=== PATIENT | female | born 1995 | race American Indian/Alaskan Native ===

== ENCOUNTER 2021-02-23 11:40 | Inpatient (IN) | payer OTHER ==
[2021-02-23] MEDS ORDERED: MAGNESIUM SULFATE 4 GM/100 ML BAG IV ONE ×2 (13:33→14:17)
[2021-02-23] MEDS: hydrALAZINE 20 MG/1 ML INJ IV PRN ×4 (13:35→23:19)
[2021-02-23] MEDS ORDERED: LACTATED RINGERS 2,000 ML ONE (13:43)
[2021-02-23] MEDS ORDERED: LACTATED RINGERS 1,000 ML ONE ×2 (13:48→16:12)
[2021-02-23] MEDS ORDERED: MAGNESIUM SULFATE 40GM/1000ML 40 GM/1,000 ML BAG IV SCH (14:00)
--- NOTE | 2021-02-23 14:01 | History and Physical Report ---
History of Present Illness Date of examination: 02/23/21 Date of admission: 02/23/21 Chief complaint: elevated blood pressures and fht decelerations.31 weeks and 6 days/ History of present illness: The patient is a 25-year-old -[place] female primigravida at 31 weeks and 6 days with elevated blood pressure heart rate decelerations from [facility] who was sent over here because of the closest hospital she did have elevated blood pressure 27 weeks and 6 days blood pressure was 140/90 she denies a prior history of hypertension or preeclampsia at that time. EDC is 10- 21 and she was first seen for when she was 7 weeks she does have a history of intermittent asthma eczema acne. She is here now resolved chlamydia infection she does have an obesity problem she has resolved pityriasis rosea. Obesity BMI is 66.9 her medications include fluconazole and if you medical car Betimol or Robaxin she has been taking fluconazole on multiple occasions working EDC is 10-21 last menstrual period ultrasound her EDC is 04/23/2021 she has had approximately 10 visits during this when her blood pressure was initially found to be elevated she denied headaches visual changes chest pain shortness of breath epigastric pain the patient has had a 20+ weight gain over the last 2 weeks prior to this admission her last hematocrit was 34.3% her blood type is B+ no surgery. Other labs include a blood type B+ antibody screen and the blood is negative hemoglobin is 11.4 hematocrit 33.8% hemoglobin a is 97.4% hemoglobin A2 was 1.4% hemoglobin S was not seen blood was 1.5 Chlamydia and gonorrhea tests were negative syphilis is nonreactive diabetic screen was 108 Past medicalhistoryincludesasthma allergies obesity and cancer and hyperlipidemia and hypertension. The patient has never smoked she does not drink alcohol she was sexually active. Syphilis test was negative HIV test was negative. Creatinine of the urine was 129.80 mg/dL rubella was immune hepatitis B was nonreactive Obesity eczema precocious puberty. The patient was made ready for a section because she hasElevated blood pressures heart rate decelerations. Past History Past Medical History: asthma, other (obesity, ashtma) Past Surgical History: no surgical history Family/Genetic History: diabetes, hypertension, cancer Social history: single - Obstetrical History Expected Date of Delivery: 04/21/21 Actual Gestation: 31 Week(s) 6 Day(s) : 1 Para: 0 Hx # Term Pregnancies: 0 Number of Pregnancies: 0 Spontaneous Abortions: 0 Induced : 0 Number of Living Children: 0 Medications and Allergies Allergies Allergy/AdvReac Type Severity Reaction Status Date / Time No Known Allergies Allergy Unverified 02/23/21 12:05 Home Medications Medication Instructions Recorded Confirmed Last Taken Type No Known Home Medications [No 02/23/21 02/23/21 Unknown History Reported Home Medications] Active Meds: Active Medications Hydralazine HCl (Hydralazine 20 Mg/1 Ml Inj) 10 mg IV Q30MIN PRN PRN Reason: Blood Pressure Last Admin: 02/23/21 13:35 Dose: 10 mg Documented by: Magnesium Sulfate (Magnesium Sulfate 4gm/100ml) 4 gm in 100 mls @ 25 mls/hr IV ONCE ONE Stop: 02/23/21 17:32 Magnesium Sulfate (Magnesium Sulfate 40gm/1000ml) 40 gm in 1,000 mls @ 50 mls/hr IV DIRECT ADDIS Review of Systems All systems: negative - Vital Signs Vital signs: Vital Signs Pulse Pulse Ox 112 H 99 02/23/21 11:57 02/23/21 11:57 Temp Pulse Resp BP Pulse Ox 99.4 F 104 H 18 154/93 99 02/23/21 12:10 02/23/21 13:42 02/23/21 12:10 02/23/21 13:39 02/23/21 13:42 - Physical Exam Breasts: Cardiovascular: Regular rate, Normal S1, Normal S2 Lungs: Positive: Clear to auscultation Abdomen: Positive: normal appearance, soft, normal bowel sounds. Negative: distention, tenderness Genitourinary (Female): Positive: normal external genitalia, normal perenium Vulva: both: normal Vagina: Positive: normal moisture. Negative: discharge Cervix: Positive: other (closed). Negative: lesion, discharge Uterus: Positive: normal size, enlarged (32 wk size), normal contour Adnexa: both: normal Anus/Rectum: Positive: normal perianal skin, heme negative. Negative: rectal mass, hemorrhoids Extremities: Deep Tendon Reflex Grade: Normal +2 - Obstetrical FHR: auscultation normal, category 1, category 2 FHR comments: fht decelerations. Uterine Contraction Monitor Mode: External Cervical Dilatation: 0 Cervical Effacement Percentage: 50 station: -3 Uterine Contraction Frequency (min): none Uterine Contraction Duration: none Uterine Contraction Pattern: Absent Uterine Tone Measurement Phase: Resting Results All other labs normal. Assessment and Plan severe pre-eclampsia , obesity, fht decelerations , 32 weeks iup plan tx with mag sulfate and prep for a .
[2021-02-23 14:16] LABS: Hematocrit 38.6 % (30.3-42.9); Hemoglobin 12.8 gm/dl (10.1-14.3); Mean Corpuscular HGB Conc 33 % (30-34); Mean Corpuscular Volume 84 fl (79-97); Platelet Count 287 K/mm3 (140-440); Red Blood Count 4.58 M/mm3 (3.65-5.03); Red Cell Distribution Width 14.8 % (13.2-15.2)
[2021-02-23] MEDS ORDERED: METOCLOPRAMIDE 10 MG/2 ML INJ IV NR (15:00)
[2021-02-23] MEDS ORDERED: BICITRA ORAL LIQD 30ML PO SCH (15:00)
[2021-02-23] MEDS ORDERED: FAMOTIDINE 20 MG/2 ML INJ IV NR (15:00)
[2021-02-23] MEDS ORDERED: ceFAZolin/Water 2 GM/20 ML 2 GM/20 ML SYRINGE IV NR (15:00)
[2021-02-23] MEDS ORDERED: OXYTOCIN DRIP 30 UNITS/500 ML BAG IV ONE (15:00)
[2021-02-23] MEDS ORDERED: MORPHINE PF 10MG/10 ML AMPULE EPIDURAL ONE (15:47)
[2021-02-23] MEDS ORDERED: NalbUPHINE 10 MG/1 ML INJ IV PRN (15:49)
[2021-02-23] MEDS ORDERED: NALOXONE 0.4 MG/1 ML INJ IV PRN ×2 (15:49→17:02)
[2021-02-23] MEDS ORDERED: ONDANSETRON 4 MG/2 ML INJ IV PRN (15:49)
--- NOTE | 2021-02-23 15:49 | Anesthesia Consultation ---
Anesthesia Consult and Med Hx Date of service: 02/23/21 - Airway Anesthetic Teeth Evaluation: Good ROM Head & Neck: Adequate Mental/Hyoid Distance: Adequate Mallampati Class: Class III Intubation Access Assessment: Possibly Difficult - Pre-Operative Health Status ASA Pre-Surgery Classification: ASA3, Emergency Proposed Anesthetic Plan: Epidural, Spinal - Pulmonary Hx Smoking: No Hx Asthma: Yes (rare inhaler use) Hx Respiratory Symptoms: No - Cardiovascular System Hx Hypertension: Yes (concern for pre-eclampsia) - Central Nervous System CVA: No - Endocrine Hx Renal Disease: No Hx Liver Disease: No Hx Insulin Dependent Diabetes: No Hx Non-Insulin Dependent Diabetes: No Hx Thyroid Disease: No - Hematic Hx Anemia: No - Other Systems Hx Obesity: Yes (BMI 43) - Additional Comments Anesthesia Medical History Comments: No prior anesthetics. Primary for HTN and non-reassuring FHTs.
--- NOTE | 2021-02-23 15:49 | Anesthesia Day of Surgery ---
Anesthesia Day of Surgery - Day of Surgery Patient Examined: Yes Patient H&P Reviewed: Yes Patient is NPO: Yes
[2021-02-23] MEDS ORDERED: fentaNYL-BUPIV 2 MCG/ML-0.125% 200 MCG/100 ML BAG EPIDURAL SCH (16:00)
[2021-02-23] MEDS ORDERED: PHENYLEPHRINE/NS 1,000 MCG/10 ML SYRINGE (OR USE) IV ONE (16:13)
[2021-02-23] MEDS ORDERED: dexAMETHasone 20 MG/5 ML VIAL ONE (16:56)
[2021-02-23] MEDS ORDERED: BUPIVACAINE/PF (0.25%) 2.5 MG/ML 30 ML VIAL INFILTRATI ONE (16:56)
[2021-02-23] MEDS ORDERED: WITCH HAZEL/ GLYCERIN PAD TP PRN (17:02)
[2021-02-23] MEDS ORDERED: MORPHINE 4 MG/1 ML INJ IV PRN (17:02)
[2021-02-23] MEDS ORDERED: LANOLIN/ZINC/DIMETHICONE (LANSINOH) 7 GM TP PRN (17:02)
--- NOTE | 2021-02-23 17:17 | Procedure Note ---
Date of procedure: 02/23/21 Pre-op diagnosis: 32 WEEKS IUP, SEVERE PRE-ECLAMPSIA, OBESITY, NON-REASSURING FHT Post-op diagnosis: other (NUCHAL CORD X 2) Procedure: Patient was taken to the operatory and made ready for a primary low transverse section. Preoperative diagnosis 32-week intrauterine , obesity, severe preeclampsia, nonreassuring heart tones. Postoperative diagnosis all of the above including nuchal cord x2. Procedure was a low transverse section. Anesthesia spinal. Drains Monson. Estimated blood loss 601 cc. Complications none. Findings liveborn male infant weight 1590 g Apgars 4 and 7. Procedure once the patient was placed with a spinal anesthetic we prepped and draped in usual fashion timeout was performed we all concurred. We and abdominal cavity with the scalpel and a Pfannenstiel incision area subcutaneous Bovie. Once within the abdominal cavity this uterine peritoneum was cut transversely with Metzenbaums bladder blade was placed in the lower pole of the incision a low transverse incision made in lower uterine segment with the scalpel and the fetus in vertex presentation was delivered without incident oropharynx suction nasopharynx suction with lab prolonged cord drainage during the course doubly clamped and cut and passed off the table to the team in stable condition. The placenta was then delivered intact manually uterus then delivered out of the abdominal cavity uterine cavity was cleaned of debris membranes and tissue uterine incision was repaired in 2 layers 1st layer was in a deep manage using running locked #0 chromic superficial myometrium was closed with running locking 0 chromic uterine incision was hemostatic vesicouterine peritoneum was repaired running 2-0 chromic on a GI needle. Tubes and ovaries appeared to be normal use drop back to abdominal cavity gutters were suction of tissue blood membranes all instruments removed from abdominal care instrument count needle lap sponge count was correct anterior abdominal peritoneum was repaired running 2-0 chromic fascia was repaired running locking 0 Vicryl subcutaneous is repaired running 2- 0 Vicryl skin was repaired running subcuticular 4-0 Vicryl on a Silviano needle and drained with Dermabond the patient tolerated procedure well she was then to return to the recovery room in stable condition. Anesthesia: spinal Surgeon: NAS LOVETT Estimated blood loss: other (601CCS) IV fluids: 600 Urine output: 50 Pathology: list (PLACENTA AND CORD) Specimen disposition: to lab Condition: stable Disposition: PACU
[2021-02-23] MEDS ORDERED: OXYTOCIN DRIP 30 UNITS/500 ML BAG IV SCH (18:00)
--- NOTE | 2021-02-23 19:30 | Progress Note ---
Regional Anesthesia Block - Regional Anesthesia Block Start Time: 17:20 Stop Time: 17:25 Performed By:: MARILY FROST Procedure: U/S guided bilateral tap block performed for post-operative pain requested by Dr. Wakefield. H&P & labs reviewed. Procedure explained, questions answered, consent obtained. Patient in the supine position with ekg, blood pressure cuff and pulse ox on and working in PACU. Timeout performed immediately before start of procedure. Probe placed in the mid-axillary line and the external oblique, internal oblique, and transverse abdominus muscles identified. Skin was cleansed with chlorahexadine 0.5% and allowed to dry. A 4" 20 G Anand echogenic needle was advanced in plane until the tip was in the fascial plane between the internal oblique and the transverse abdominus. After negative aspiration 35 ml/side of [30 ml 0.5% Bupivacaine], [10 mg dexamethasone], and [40 ml sterile saline] was injected in 5 ml increments with negative aspiration in between. Patient tolerated procedure well.
[2021-02-24] MEDS ORDERED: LACTATED RINGERS 1,000 ML ONE (02:04)
[2021-02-24] MEDS ORDERED: LACTATED RINGERS 1,000 ML IV SCH (02:15)
[2021-02-24] MEDS ORDERED: ACETAMINOPHEN 325 MG TAB PO PRN (05:17)
[2021-02-24] MEDS ORDERED: NALOXONE 0.4 MG/1 ML INJ IV PRN (05:17)
[2021-02-24] MEDS ORDERED: IBUPROFEN 600 MG TAB PO PRN (05:17)
[2021-02-24] MEDS ORDERED: WITCH HAZEL/ GLYCERIN PAD TP PRN (05:17)
[2021-02-24] MEDS ORDERED: HYDROcodone/ACETAMINOPHEN 5-325 MG TAB PO PRN (05:17)
[2021-02-24] MEDS ORDERED: LANOLIN/ZINC/DIMETHICONE (LANSINOH) 7 GM TP PRN (05:17)
[2021-02-24] MEDS ORDERED: MORPHINE 4 MG/1 ML INJ IV PRN (05:17)
[2021-02-24] MEDS ORDERED: ceFAZolin/NS 1 GM/50 ML 0 GM/0 ML BAG IV ONE (05:41)
[2021-02-24] MEDS ORDERED: OXYTOCIN DRIP 30 UNITS/500 ML BAG IV SCH (06:00)
[2021-02-24 06:31] LABS: Hematocrit 36.2 % (30.3-42.9); Hemoglobin 12.2 gm/dl (10.1-14.3)
[2021-02-24] MEDS ORDERED: ceFAZolin/NS 1 GM/50 ML 1 GM/50 ML BAG IV SCH (08:00)
--- NOTE | 2021-02-24 09:16 | Progress Note ---
Assessment and Plan severe pre-eclampsia , obesity, fht decelerations , 32 weeks iup plan tx with mag sulfate and prep for a . pt is stable. will stop mag sulfate. Subjective - Subjective Date of service: 02/24/21 Principal diagnosis: 32 wks iup, non-reasurring fh; obesity Interval history: The patient is a 25-year-old -[place] female primigravida at 31 weeks and 6 days with elevated blood pressure heart rate decelerations from [facility] who was sent over here because of the closest hospital she did have elevated blood pressure 27 weeks and 6 days blood pressure was 140/90 she denies a prior history of hypertension or preeclampsia at that time. EDC is 10- 21 and she was first seen for when she was 7 weeks she does have a history of intermittent asthma eczema acne. She is here now resolved chlamydia infection she does have an obesity problem she has resolved pityriasis rosea. Obesity BMI is 66.9 her medications include fluconazole and if you medical car Betimol or Robaxin she has been taking fluconazole on multiple occasions working EDC is 10- last menstrual period ultrasound her EDC is 04/23/2021 she has had approximately 10 visits during this when her blood pressure was initially found to be elevated she denied headaches visual changes chest pain shortness of breath epigastric pain the patient has had a 20+ weight gain over the last 2 weeks prior to this admission her last hematocrit was 34.3% her blood type is B+ no surgery. Other labs include a blood type B+ antibody screen and the blood is negative hemoglobin is 11.4 hematocrit 33.8% hemoglobin a is 97.4% hemoglobin A2 was 1.4% hemoglobin S was not seen blood was 1.5 Chlamydia and gonorrhea tests were negative syphilis is nonreactive diabetic screen was 108 Past medicalhistoryincludesasthma allergies obesity and cancer and hyperlipidemia and hypertension. The patient has never smoked she does not drink alcohol she was sexually active. Syphilis test was negative HIV test was negative. Creatinine of the urine was 129.80 mg/dL rubella was immune hepatitis B was nonreactive Obesity eczema precocious puberty. The patient was made ready for a section because she hasElevated blood pressures heart rate decelerations. Patient reports: appetite normal Objective - Vital Signs Latest vital signs: Vital Signs Temp Pulse Resp Resp BP BP Pulse Ox 02/24/21 09:06 91 H 100 02/24/21 09:01 84 100 02/24/21 08:58 86 93 02/24/21 08:56 99 H 97 02/24/21 08:51 102 H 99 02/24/21 08:48 85 152/81 02/24/21 08:46 95 H 99 02/24/21 08:45 92 H 92 02/24/21 08:41 87 100 02/24/21 08:36 79 99 02/24/21 08:31 83 99 02/24/21 08:26 80 100 02/24/21 08:21 84 100 02/24/21 08:17 82 139/74 02/24/21 08:16 84 100 02/24/21 08:11 79 99 02/24/21 08:06 79 100 02/24/21 08:01 86 99 02/24/21 07:56 97 H 99 02/24/21 07:51 98 H 100 02/24/21 07:48 83 153/80 02/24/21 07:46 83 100 02/24/21 07:41 79 100 02/24/21 07:36 83 100 02/24/21 07:31 83 100 02/24/21 07:26 83 100 02/24/21 07:21 85 100 02/24/21 07:18 83 155/84 02/24/21 07:16 81 100 02/24/21 07:11 88 100 02/24/21 07:10 02/24/21 07:06 94 H 99 02/24/21 07:01 92 H 99 02/24/21 06:56 94 H 98 02/24/21 06:51 89 100 02/24/21 06:47 91 H 136/74 02/24/21 06:46 96 H 99 02/24/21 06:41 79 98 02/24/21 06:36 82 97 02/24/21 06:31 81 97 02/24/21 06:26 80 98 02/24/21 06:21 82 98 02/24/21 06:17 85 138/76 02/24/21 06:16 83 99 02/24/21 06:11 75 98 02/24/21 06:06 82 99 02/24/21 06:01 80 97 02/24/21 05:56 81 98 02/24/21 05:51 87 99 08 05:46 107 H 97 02/24/21 05:41 82 96 08 05:36 85 96 02/24/21 05:31 80 96 08 05:26 79 97 08 05:21 80 97 02/24/21 05:17 83 137/75 08 05:16 86 98 02/24/21 05:11 82 97 02/24/21 05:06 81 98 02/24/21 05:01 85 98 02/24/21 04:56 86 98 02/24/21 04:51 90 97 02/24/21 04:48 80 154/78 08 04:46 77 98 02/24/21 04:41 82 98 02/24/21 04:36 80 96 02/24/21 04:31 78 97 02/24/21 04:26 78 97 02/24/21 04:21 82 97 02/24/21 04:17 83 129/68 94 02/24/21 04:16 84 96 02/24/21 04:11 84 96 02/24/21 04:06 81 96 02/24/21 04:01 85 96 02/24/21 03:56 79 96 02/24/21 03:51 81 96 02/24/21 03:47 90 138/78 94 02/24/21 03:46 88 95 02/24/21 03:41 79 95 02/24/21 03:36 81 95 02/24/21 03:31 80 96 02/24/21 03:26 81 95 02/24/21 03:21 79 95 08 03:17 80 136/71 94 02/24/21 03:16 81 96 02/24/21 03:11 78 96 02/24/21 03:06 85 96 02/24/21 03:01 85 97 02/24/21 02:56 83 97 02/24/21 02:51 88 97 02/24/21 02:47 86 141/76 02/24/21 02:46 85 98 07 02:41 83 98 0807 02:36 83 98 08 02:31 85 97 02/24/21 02:26 84 98 02/24/21 02:21 84 98 08/07/21 02:17 82 144/84 02/24/21 02:16 81 97 02/24/21 02:11 91 H 98 02/24/21 02:06 85 98 02/24/21 02:01 76 97 02/24/21 01:56 79 97 02/24/21 01:51 81 97 02/24/21 01:47 84 139/76 02/24/21 01:46 81 97 02/24/21 01:41 83 97 02/24/21 01:36 80 96 02/24/21 01:31 82 96 02/24/21 01:26 85 96 02/24/21 01:21 87 95 02/24/21 01:17 79 122/68 93 02/24/21 01:16 80 95 02/24/21 01:11 81 95 02/24/21 01:06 81 96 02/24/21 01:01 81 96 02/24/21 00:56 84 96 02/24/21 00:51 84 96 02/24/21 00:47 90 139/75 94 02/24/21 00:46 86 96 02/24/21 00:41 90 97 02/24/21 00:36 89 97 02/24/21 00:31 90 96 02/24/21 00:26 84 96 02/24/21 00:21 89 96 02/24/21 00:17 104 H 139/79 94 02/24/21 00:16 91 H 96 02/24/21 00:11 96 H 96 02/24/21 00:06 90 96 02/24/21 00:01 87 96 02/23/21 23:56 88 96 02/23/21 23:51 95 H 96 02/23/21 23:47 100 H 156/79 02/23/21 23:46 100 H 97 02/23/21 23:42 97 H 148/72 02/23/21 23:41 101 H 97 02/23/21 23:37 96 H 152/76 02/23/21 23:36 100 H 97 02/23/21 23:32 103 H 158/77 02/23/21 23:31 102 H 97 02/23/21 23:27 102 H 167/79 02/23/21 23:26 104 H 99 02/23/21 23:21 95 H 98 08/06/21 23:19 93 H 172/81 02/23/21 23:18 97 H 172/81 02/23/21 23:16 92 H 98 02/23/21 23:15 107 H 173/84 02/23/21 23:11 96 H 98 02/23/21 23:06 89 97 02/23/21 23:03 89 213/99 94 02/23/21 23:01 83 97 02/23/21 22:56 89 99 02/23/21 22:51 86 98 02/23/21 22:48 96 H 190/93 02/23/21 22:46 89 98 02/23/21 22:41 86 98 02/23/21 22:36 90 97 02/23/21 22:33 94 H 179/91 02/23/21 22:31 86 98 02/23/21 22:26 84 98 02/23/21 22:21 83 98 02/23/21 22:18 83 171/106 02/23/21 22:16 84 98 02/23/21 22:11 86 98 02/23/21 22:06 78 99 02/23/21 22:03 79 172/107 02/23/21 22:01 77 99 02/23/21 21:56 75 99 02/23/21 21:55 74 172/91 02/23/21 21:51 74 99 02/23/21 21:48 81 172/91 89 02/23/21 21:46 84 99 02/23/21 21:41 74 100 02/23/21 21:36 77 100 02/23/21 21:33 76 174/93 02/23/21 21:31 75 100 02/23/21 21:26 77 99 02/23/21 21:21 73 100 02/23/21 21:18 73 171/82 02/23/21 21:16 74 99 02/23/21 21:13 71 94 02/23/21 21:11 84 97 02/23/21 21:06 69 100 02/23/21 21:03 76 160/92 02/23/21 21:01 73 99 02/23/21 20:56 80 99 02/23/21 20:51 75 99 02/23/21 20:47 81 155/88 02/23/21 20:46 82 99 02/23/21 20:44 18 02/23/21 20:41 78 99 02/23/21 20:36 75 99 02/23/21 20:32 85 166/93 02/23/21 20:31 85 98 02/23/21 20:29 79 172/95 02/23/21 20:26 85 100 02/23/21 20:21 72 100 02/23/21 20:17 70 169/94 02/23/21 20:16 73 100 02/23/21 20:11 79 100 02/23/21 20:06 78 99 02/23/21 20:03 76 167/108 02/23/21 20:01 72 99 02/23/21 19:56 72 99 02/23/21 19:51 80 99 02/23/21 19:47 75 151/95 02/23/21 19:46 78 100 02/23/21 19:41 82 100 02/23/21 19:36 80 99 02/23/21 19:32 81 152/102 02/23/21 19:31 76 99 02/23/21 19:26 75 99 02/23/21 19:21 84 98 02/23/21 19:17 73 157/95 02/23/21 19:16 71 99 02/23/21 19:11 71 100 02/23/21 19:06 69 100 02/23/21 19:04 76 94 02/23/21 19:02 80 142/88 02/23/21 19:01 80 99 02/23/21 18:57 83 90 02/23/21 18:56 79 99 02/23/21 18:51 83 85 02/23/21 18:49 82 141/90 02/23/21 18:46 75 100 02/23/21 18:41 67 99 02/23/21 18:39 71 93 02/23/21 18:36 74 100 02/23/21 18:32 82 119/61 02/23/21 18:31 80 99 02/23/21 18:07 97.9 F 14 02/23/21 17:52 71 99 02/23/21 17:47 74 126/58 100 02/23/21 17:42 66 100 02/23/21 17:38 65 90 02/23/21 17:37 68 97 02/23/21 17:32 58 L 117/56 99 02/23/21 17:15 97.6 F 67 14 134/57 99 02/23/21 15:28 118 H 99 02/23/21 15:23 114 H 99 02/23/21 15:18 111 H 159/83 99 02/23/21 15:13 111 H 99 02/23/21 15:08 111 H 99 02/23/21 15:03 120 H 162/89 99 02/23/21 14:58 115 H 99 02/23/21 14:53 117 H 100 02/23/21 14:48 114 H 157/94 99 02/23/21 14:43 122 H 100 02/23/21 14:38 103 H 100 02/23/21 14:36 107 H 171/96 02/23/21 14:33 107 H 171/96 100 02/23/21 14:27 99 H 100 02/23/21 14:22 104 H 100 02/23/21 14:18 104 H 168/92 02/23/21 14:17 107 H 100 02/23/21 14:12 111 H 100 02/23/21 14:07 107 H 100 02/23/21 14:02 102 H 100 02/23/21 13:57 108 H 147/100 100 02/23/21 13:55 111 H 144/102 02/23/21 13:52 115 H 161/105 100 02/23/21 13:49 107 H 184/90 02/23/21 13:47 110 H 158/91 100 02/23/21 13:42 104 H 99 02/23/21 13:39 94 H 154/93 02/23/21 13:37 93 H 100 02/23/21 13:35 100 H 166/116 02/23/21 13:32 99 H 100 02/23/21 13:27 101 H 100 02/23/21 13:22 94 H 100 02/23/21 13:21 100 H 166/116 02/23/21 13:17 100 H 100 02/23/21 13:12 101 H 100 02/23/21 13:08 112 H 168/95 02/23/21 13:07 102 H 100 02/23/21 13:02 87 171/106 100 02/23/21 12:57 89 99 02/23/21 12:52 85 99 08/06/21 12:51 96 H 164/101 02/23/21 12:47 92 H 171/102 99 02/23/21 12:42 84 99 02/23/21 12:37 102 H 99 02/23/21 12:32 93 H 135/93 100 02/23/21 12:27 102 H 99 02/23/21 12:22 103 H 100 02/23/21 12:17 101 H 145/76 100 02/23/21 12:12 109 H 100 02/23/21 12:10 99.4 F 18 02/23/21 12:07 104 H 100 02/23/21 12:02 107 H 99 02/23/21 11:59 116 H 173/102 02/23/21 11:57 112 H 99 Pulse Ox 02/24/21 09:06 02/24/21 09:01 02/24/21 08:58 02/24/21 08:56 02/24/21 08:51 02/24/21 08:48 02/24/21 08:46 02/24/21 08:45 02/24/21 08:41 02/24/21 08:36 02/24/21 08:31 02/24/21 08:26 02/24/21 08:21 02/24/21 08:17 02/24/21 08:16 02/24/21 08:11 02/24/21 08:06 02/24/21 08:01 02/24/21 07:56 02/24/21 07:51 02/24/21 07:48 02/24/21 07:46 02/24/21 07:41 02/24/21 07:36 02/24/21 07:31 02/24/21 07:26 02/24/21 07:21 02/24/21 07:18 02/24/21 07:16 02/24/21 07:11 02/24/21 07:10 97 02/24/21 07:06 02/24/21 07:01 02/24/21 06:56 02/24/21 06:51 02/24/21 06:47 02/24/21 06:46 02/24/21 06:41 02/24/21 06:36 02/24/21 06:31 02/24/21 06:26 02/24/21 06:21 02/24/21 06:17 02/24/21 06:16 02/24/21 06:11 02/24/21 06:06 02/24/21 06:01 02/24/21 05:56 02/24/21 05:51 02/24/21 05:46 02/24/21 05:41 02/24/21 05:36 02/24/21 05:31 02/24/21 05:26 02/24/21 05:21 02/24/21 05:17 02/24/21 05:16 02/24/21 05:11 02/24/21 05:06 02/24/21 05:01 02/24/21 04:56 02/24/21 04:51 02/24/21 04:48 02/24/21 04:46 02/24/21 04:41 02/24/21 04:36 02/24/21 04:31 02/24/21 04:26 02/24/21 04:21 02/24/21 04:17 02/24/21 04:16 02/24/21 04:11 02/24/21 04:06 02/24/21 04:01 02/24/21 03:56 02/24/21 03:51 02/24/21 03:47 02/24/21 03:46 02/24/21 03:41 02/24/21 03:36 02/24/21 03:31 02/24/21 03:26 02/24/21 03:21 02/24/21 03:17 02/24/21 03:16 02/24/21 03:11 02/24/21 03:06 02/24/21 03:01 02/24/21 02:56 02/24/21 02:51 02/24/21 02:47 02/24/21 02:46 02/24/21 02:41 02/24/21 02:36 02/24/21 02:31 02/24/21 02:26 02/24/21 02:21 02/24/21 02:17 02/24/21 02:16 02/24/21 02:11 02/24/21 02:06 02/24/21 02:01 02/24/21 01:56 02/24/21 01:51 02/24/21 01:47 02/24/21 01:46 02/24/21 01:41 02/24/21 01:36 02/24/21 01:31 02/24/21 01:26 02/24/21 01:21 02/24/21 01:17 02/24/21 01:16 02/24/21 01:11 02/24/21 01:06 02/24/21 01:01 02/24/21 00:56 02/24/21 00:51 02/24/21 00:47 02/24/21 00:46 02/24/21 00:41 02/24/21 00:36 02/24/21 00:31 02/24/21 00:26 02/24/21 00:21 02/24/21 00:17 02/24/21 00:16 02/24/21 00:11 02/24/21 00:06 02/24/21 00:01 02/23/21 23:56 02/23/21 23:51 02/23/21 23:47 02/23/21 23:46 02/23/21 23:42 02/23/21 23:41 02/23/21 23:37 02/23/21 23:36 02/23/21 23:32 02/23/21 23:31 02/23/21 23:27 02/23/21 23:26 02/23/21 23:21 02/23/21 23:19 02/23/21 23:18 02/23/21 23:16 02/23/21 23:15 02/23/21 23:11 02/23/21 23:06 02/23/21 23:03 02/23/21 23:01 02/23/21 22:56 02/23/21 22:51 02/23/21 22:48 02/23/21 22:46 02/23/21 22:41 02/23/21 22:36 02/23/21 22:33 02/23/21 22:31 02/23/21 22:26 02/23/21 22:21 02/23/21 22:18 02/23/21 22:16 02/23/21 22:11 02/23/21 22:06 02/23/21 22:03 02/23/21 22:01 02/23/21 21:56 02/23/21 21:55 02/23/21 21:51 02/23/21 21:48 02/23/21 21:46 02/23/21 21:41 02/23/21 21:36 02/23/21 21:33 02/23/21 21:31 02/23/21 21:26 02/23/21 21:21 02/23/21 21:18 02/23/21 21:16 02/23/21 21:13 02/23/21 21:11 02/23/21 21:06 02/23/21 21:03 02/23/21 21:01 02/23/21 20:56 02/23/21 20:51 02/23/21 20:47 02/23/21 20:46 02/23/21 20:44 02/23/21 20:41 02/23/21 20:36 02/23/21 20:32 02/23/21 20:31 02/23/21 20:29 02/23/21 20:26 02/23/21 20:21 02/23/21 20:17 02/23/21 20:16 02/23/21 20:11 02/23/21 20:06 02/23/21 20:03 02/23/21 20:01 02/23/21 19:56 02/23/21 19:51 02/23/21 19:47 02/23/21 19:46 02/23/21 19:41 02/23/21 19:36 02/23/21 19:32 02/23/21 19:31 02/23/21 19:26 02/23/21 19:21 02/23/21 19:17 02/23/21 19:16 02/23/21 19:11 02/23/21 19:06 02/23/21 19:04 02/23/21 19:02 02/23/21 19:01 02/23/21 18:57 02/23/21 18:56 02/23/21 18:51 02/23/21 18:49 02/23/21 18:46 02/23/21 18:41 02/23/21 18:39 02/23/21 18:36 02/23/21 18:32 02/23/21 18:31 02/23/21 18:07 02/23/21 17:52 02/23/21 17:47 02/23/21 17:42 02/23/21 17:38 02/23/21 17:37 02/23/21 17:32 02/23/21 17:15 02/23/21 15:28 02/23/21 15:23 02/23/21 15:18 02/23/21 15:13 02/23/21 15:08 02/23/21 15:03 02/23/21 14:58 02/23/21 14:53 02/23/21 14:48 02/23/21 14:43 02/23/21 14:38 02/23/21 14:36 02/23/21 14:33 02/23/21 14:27 02/23/21 14:22 02/23/21 14:18 02/23/21 14:17 02/23/21 14:12 02/23/21 14:07 02/23/21 14:02 02/23/21 13:57 02/23/21 13:55 02/23/21 13:52 02/23/21 13:49 02/23/21 13:47 02/23/21 13:42 02/23/21 13:39 02/23/21 13:37 02/23/21 13:35 02/23/21 13:32 02/23/21 13:27 02/23/21 13:22 02/23/21 13:21 02/23/21 13:17 02/23/21 13:12 02/23/21 13:08 02/23/21 13:07 02/23/21 13:02 02/23/21 12:57 02/23/21 12:52 02/23/21 12:51 02/23/21 12:47 02/23/21 12:42 02/23/21 12:37 02/23/21 12:32 02/23/21 12:27 02/23/21 12:22 02/23/21 12:17 02/23/21 12:12 02/23/21 12:10 02/23/21 12:07 02/23/21 12:02 02/23/21 11:59 02/23/21 11:57 Intake and Output 02/23/21 02/24/21 02/24/21 23:59 07:59 15:59 Intake Total 850 Output Total 150 400 Balance 700 -400 Intake: IV 850 Output: Urine 150 400 Void 400 Other: Total, Output Amount 400 - Exam Abdomen: Present: normal appearance, soft, normal bowel sounds Uterus: Present: firm Extremities: Present: normal Deep Tendon Reflex Grade: Normal +2 Incision: Present: normal - Labs Labs: Abnormal lab results 02/23/21 02/24/21 02/24/21 Range/Units 13:54 05:46 07:53 WBC 11.8 H (4.5-11.0) K/mm3 Magnesium 7.30 H 7.10 H (1.7-2.3) mg/dL
[2021-02-24] MEDS: IBUPROFEN 600 MG TAB PO PRN (09:52)
[2021-02-24] MEDS ORDERED: SIMETHICONE 80 MG CHEW TAB PO PRN (12:22)
[2021-02-24] MEDS: hydrALAZINE 20 MG/1 ML INJ IV PRN (13:20)
--- NOTE | 2021-02-24 15:49 | Post Anesthesia Evaluation ---
- Post Anesthesia Evaluation Patient Participated: Yes Airway Patent: Yes Stable Respiratory Function: Yes Nausea/Vomiting: No Temp > 96.8F: Yes Pain Manageable: Yes Adequeate Hydration: Yes Anesthesia Complications: No Block Receding Appropriately: Yes
[2021-02-24] MEDS: HYDROcodone/ACETAMINOPHEN 5-325 MG TAB PO PRN ×2 (17:21→21:55)
[2021-02-24 19:37] LABS: Hematocrit 34.1 % (30.3-42.9); Hemoglobin 11.3 gm/dl (10.1-14.3)
[2021-02-24] MEDS: DOCUSATE SODIUM 100 MG CAP PO SCH (21:51)
[2021-02-25] MEDS ORDERED: ceFAZolin/NS 1 GM/50 ML 1 GM/50 ML BAG IV SCH (00:30)
[2021-02-25] MEDS: IBUPROFEN 600 MG TAB PO PRN (02:53)
[2021-02-25] MEDS: HYDROcodone/ACETAMINOPHEN 5-325 MG TAB PO PRN ×2 (08:35→22:06)
[2021-02-25] MEDS: DOCUSATE SODIUM 100 MG CAP PO SCH ×2 (08:35→22:02)
--- NOTE | 2021-02-25 10:49 | Progress Note ---
Assessment and Plan A: /postop day 2 S/P primary LTCS. Preeclampsia, S/P magnesium sulfate. BPs controlled with Labetalol. Obesity. P: Monitor BPs. Continue Labetalol 200 mg po BID. Patient to ambulate. Subjective - Subjective Date of service: 02/25/21 Principal diagnosis: /postop day 2 S/P primary LTCS Interval history: S/P magnesium sulfate. Taking Labetalol 200 mg po BID. Patient reports: appetite normal, voiding normally, pain well controlled, flatus, ambulating normally, no dizzy ambulation, no nauseated : doing well Objective - Vital Signs Latest vital signs: Vital Signs Temp Pulse Resp BP Pulse Ox Pulse Ox 02/25/21 10:20 99 02/25/21 07:56 99 02/25/21 07:39 98.3 F 75 18 118/73 98 02/25/21 05:20 68 134/73 96 02/25/21 03:53 18 02/25/21 02:53 18 02/25/21 01:25 98.5 F 88 20 136/79 97 02/25/21 00:46 18 02/25/21 00:16 18 02/24/21 22:55 18 02/24/21 21:55 18 02/24/21 21:50 91 H 143/76 02/24/21 21:02 98.7 F 91 H 20 143/76 98 02/24/21 19:56 99 02/24/21 15:49 98.5 F 95 H 20 135/86 96 02/24/21 15:40 98 02/24/21 13:35 98 H 99 02/24/21 13:30 99 H 99 02/24/21 13:28 94 H 153/78 02/24/21 13:25 94 H 99 02/24/21 13:20 88 172/89 100 02/24/21 13:17 88 172/89 02/24/21 13:15 87 100 02/24/21 13:10 82 99 02/24/21 13:05 89 98 02/24/21 13:00 89 99 02/24/21 12:58 93 H 176/104 02/24/21 12:55 87 97 02/24/21 12:52 86 94 02/24/21 12:50 84 97 02/24/21 12:45 86 100 02/24/21 12:40 98 H 99 02/24/21 12:37 96 H 94 02/24/21 12:35 88 99 02/24/21 12:32 87 94 02/24/21 12:30 85 98 02/24/21 12:28 87 170/92 02/24/21 12:25 90 98 02/24/21 12:20 90 99 02/24/21 12:15 94 H 98 02/24/21 12:10 83 97 02/24/21 12:05 88 98 02/24/21 12:00 94 H 98 02/24/21 11:57 93 H 178/92 02/24/21 11:55 99 H 98 02/24/21 11:44 106 H 174/81 Intake and Output 02/24/21 02/25/21 02/25/21 23:59 07:59 15:59 Intake Total 1200 240 360 Balance 1200 240 360 Intake: Oral 600 240 Intake, Free Water 600 360 Other: Total, Intake Amount 120 120 # Voids Void 3 1 1 - Exam Cardiovascular: Present: Regular rate Lungs: Present: Clear to auscultation Abdomen: Present: normal appearance, soft, normal bowel sounds. Absent: distention, tenderness, guarding, rigidity Uterus: Present: normal, firm, fundal height below umbilicus. Absent: bogginess, tenderness Extremities: Present: edema. Absent: tenderness Incision: Present: normal, dry, intact - Labs Labs: Abnormal lab results 02/24/21 Range/Units 13:26 Magnesium 5.90 H (1.7-2.3) mg/dL
[2021-02-26 09:33] LABS: Basophils % (Auto) 0.1 % (0.0-1.8); Eosinophils # (Auto) 0.2 K/mm3 (0.0-0.4); Eosinophils % (Auto) 1.8 % (0.0-4.3); Hematocrit 28.3 % (30.3-42.9); Hemoglobin 9.5 gm/dl (10.1-14.3); Lymphocytes # (Auto) 1.7 K/mm3 (1.2-5.4); Lymphocytes % (Auto) 16.5 % (13.4-35.0); Mean Corpuscular HGB Conc 34 % (30-34); Mean Corpuscular Volume 84 fl (79-97); Monocytes # (Auto) 0.5 K/mm3 (0.0-0.8); Monocytes % (Auto) 5.4 % (0.0-7.3); Platelet Count 224 K/mm3 (140-440); Red Blood Count 3.39 M/mm3 (3.65-5.03); Red Cell Distribution Width 15.7 % (13.2-15.2)
[2021-02-26 09:34] LABS: Alanine Aminotransferase 48 units/L (7-56); Albumin 2.3 g/dL (3.9-5); BUN/Creatinine Ratio 16; Blood Urea Nitrogen 14 mg/dL (7-17); Calcium 8.1 mg/dL (8.4-10.2); Hemolysis Index 1
--- NOTE | 2021-02-26 10:16 | Discharge Summary ---
Providers - Providers Date of Admission: 02/23/21 14:24 Date of discharge: 02/26/21 Attending physician: NAS LOVETT MD Primary care physician: NAS LOVETT MD Hospitalization Reason for admission: other (elevated b/p and FHT decelerations) Delivery: Procedure: primary low transverse Episiotomy: none Laceration: none Incision: normal, dry, intact Other procedures: none complications: none Discharge diagnosis: IUP at term delivered baby: male Hospital course: Pt was admitted to [facility] with elevated b/ps and NRFHT. She underwent a primary LTCS r/t same. See h&p,delivery summary, and pp notes. B/Ps were elevated on 02/24 but between 130-150/70-80s since then. Pt denied webber, visual problems, or ep igastric pain and was requesting to go home. She was d/c'd home and advised to monitor her b/ps @ home and f/u in 2 days for a clinical b/p check. Dr Hager was consulted and MD agreed with plan. Condition at discharge: Stable Disposition: DC-01 TO HOME OR SELFCARE Plan - Discharge Medications Prescriptions: labetaloL [Labetalol 200mg TAB] 200 mg PO BID #120 tablet Ibuprofen [Motrin 600 MG tab] 600 mg PO Q6H PRN #30 tablet PRN Reason: Pain, Mild (1-3) - Provider Discharge Summary Activity: routine, no sex for 6 weeks, no heavy lifting 4 weeks, no strenuous exercise Diet: routine Instructions: routine Additional instructions: [] Smoking cessation referral if applicable(refer to patient education folder for contact #) [] Refer to [facility] Booklet Call your doctor immediately for: * Fever > 100.5 * Heavy vaginal bleeding ( >1 pad per hour) * Severe persistent headache * Shortness of breath * Reddened, hot, painful area to leg or breast * Drainage or odor from incision. * Keep incision clean and dry at all times and follow doctor's instructions regarding bathing/showering - Follow up plan Follow up: NAS LOVETT MD [Primary Care Provider] - 14 Days
[2021-02-26] MEDS: DOCUSATE SODIUM 100 MG CAP PO SCH (10:30)
[2021-02-26] MEDS: HYDROcodone/ACETAMINOPHEN 5-325 MG TAB PO PRN (16:24)
[2021-02-26 16:43] VITALS: BP 146/81
== END 2021-02-26 17:15 | disposition home or self-care (01) | DRG 788 ==
LOC: TRG 11:40 → EDBD 11:40 → APU 11:42 → TRG 14:23 → APU 14:24 → LD 17:28 → OB 02-24 14:35
PROC: 10D00Z1 Extraction of Products of Conception, Low, Open Approach (ICD-10-PCS; principal; 2021-02-23)
PROC: 3E0T3BZ Introduction of Anesthetic Agent into Peripheral Nerves and Plexi, Percutaneous Approach (ICD-10-PCS; 2021-02-23)
DX: O76 Abnormality in fetal heart rate and rhythm complicating labor and delivery (principal); O99.214 Obesity complicating childbirth; O36.8330 Maternal care for abnormalities of the fetal heart rate or rhythm, third trimester, not applicable or unspecified; Z20.822 Contact with and (suspected) exposure to COVID-19; O14.14 Severe pre-eclampsia complicating childbirth; O99.52 Diseases of the respiratory system complicating childbirth; Z83.3 Family history of diabetes mellitus; Z37.0 Single live birth; Z3A.31 31 weeks gestation of pregnancy; Z82.49 Family history of ischemic heart disease and other diseases of the circulatory system; Z80.9 Family history of malignant neoplasm, unspecified
CPT/HCPCS: 36415; 59025; 80053; 83735; 85014; 85018; 85025; 85027; 86592; 86850; 86900; 86901; 88307; G0378; A6250; J0360; J0690; J1100; J2270; J2370; J2765; J3475; J3490; J7120; U0003